=== PATIENT | male | born 1980 | race American Indian/Alaskan Native ===

== ENCOUNTER 2022-07-13 17:36 | Emergency (ER) | payer SELFPAY ==
--- NOTE | 2022-07-13 | ECG_ITS ---
Test Reason : CHEST PAIN Blood Pressure : / mmHG Vent. Rate : 061 BPM Atrial Rate : 061 BPM P-R Int : 172 ms QRS Dur : 090 ms QT Int : 406 ms P-R-T Axes : 039 023 011 degrees QTc Int : 408 ms Normal sinus rhythm Normal ECG When compared with ECG of 25-JUN-2019 13:19, No significant change was found Referred By: Generic ED Physician Electronically Signed By:CORTNEY NAPOLES
--- NOTE | ~2022-07-13 | XR_ITS ---
EXAMINATION: XR CHEST CLINICAL INFORMATION: Cough. COMPARISON: 06/25/2019 chest radiographs. TECHNIQUE: Frontal view of the chest was obtained. FINDINGS: No significant abnormality is noted involving the heart, lungs, mediastinum, bony thorax or soft tissues. XR/XR chest 1V IMPRESSION: No acute cardiopulmonary process.
[2022-07-13 17:39] VITALS: BP 133/89; PULSE 70; RESP 18; TEMP 36.7; O2SAT 98; BMI 29.0
--- NOTE | 2022-07-13 17:42 | ED_ITS ---
HPI - URI/Sore Throat General Chief Complaint: Chest Pain <FANNY Dee Last Filed: 07/13/22 17:43> Stated Complaint: Chest pain/Cough <FANNY Dee Last Filed: 07/13/22 17:43> Time Seen by Provider: 07/13/22 23:58 <FANNY Dee Last Filed: 07/13/22 17:43> Source: patient <FANNY Kauffman Last Filed: 07/14/22 00:35> Mode of arrival: ambulatory <FANNY Kauffman Last Filed: 07/14/22 00:35> Limitations: no limitations <FANNY Kauffman Last Filed: 07/14/22 00:35> History of Present Illness HPI Narrative: This is a 41-year-old male without significant medical history presenting to the emergency department with complaints of persistent cough times few weeks, patient reports the cough is intermittent, dry and very uncomfortable in nature. Patient tells me he is coughing so much that when he coughs he gets chest pain however does not have chest pain at rest or with exertion. Patient reports he was recently diagnosed with COVID-19 a few weeks ago without complications. He denies fevers, chills, nausea, vomiting, abdominal pain, headache, vision changes, lower extremity swelling, shortness of breath, headache, vision changes, weakness. No history of PE or DVT. No history of hypercoagulable disorders. Not on hormone replacement therapy. Denies long travel. <FANNY Kauffman Last Filed: 07/14/22 00:35> Related Data Home Medications: Previous Rx's Medication Instructions Recorded albuterol sulfate 90 mcg/actuation 2 inh inhalation Q4-6H PRN 07/14/22 breath activated powder inhaler shortness of breath or wheezing #1 ea azithromycin 250 mg tablet See Rx Instructions PO .COMPLEX #6 07/14/22 tabs prednisone 20 mg tablet 40 mg PO DAILY 5 days #10 tabs 07/14/22 <FANNY Dee Last Filed: 07/13/22 17:43> Allergies/Adverse Reactions: Allergies Allergy/AdvReac Type Severity Reaction Status Date / Time No Known Allergies Allergy Unverified 02/07/20 15:53 [No Known Allergies*] <FANNY Dee - Last Filed: 07/13/22 17:43> Review of Systems Review of Systems: Constitutional : No Weight loss, No Fever, No Chills, No Fatigue, No Malaise ENT/Mouth : No sore throat, No Rhinorrhea Eyes: No Eye Pain, No Swelling, No Redness Cardiovascular : No Chest Pain, No SOB, No Dyspnea on Exertion, No Orthopnea, No Edema, No Palpitations Respiratory : + Cough, No Sputum, No Wheezing Gastrointestinal : No Nausea, No Vomiting, No Diarrhea, No Constipation, No abdominal Pain, No Hematochezia, No Melena Genitourinary : No Dysuria, No Urinary Frequency, No Hematuria, Musculoskeletal : No joint pain, No Myalgias, No Joint Swelling Skin : No Skin Lesions, No rash Neuro : No Weakness, No Numbness, No Dizziness, No Headache Psych : No Anxiety/Panic, No Depression All other systems reviewed and are negative <FANNY Kauffman - Last Filed: 07/14/22 00:35> Yes all other systems are reviewed and are negative <FANNY Kauffman - Last Filed: 07/14/22 00:35> [facility] Past Medical History Attestation statement: The following information was validated with the patient. <FANNY Kauffman - Last Filed: 07/14/22 00:35> Source: old records reviewed and nursing notes reviewed <FANNY Kauffman - Last Filed: 07/14/22 00:35> Social History Social History: Social History Advance Directives: No Advance Directives Information Provided: Yes <FANNY Dee - Last Filed: 07/13/22 17:43> Physical Exam Vital Signs: Vital Signs: Last Vital Signs Temp 98.0 F 07/13/22 17:39 Pulse 62 07/14/22 00:27 Resp 16 07/14/22 00:27 BP 133/89 07/13/22 17:39 Pulse Ox 98 07/13/22 17:39 O2 Del Method 07/13/22 17:39 BMI result Body Mass Index 29.0 <FANNY Dee - Last Filed: 07/13/22 17:43> Vital Signs: Last Vital Signs Temp 98.0 F 07/13/22 17:39 Pulse 62 07/14/22 00:27 Resp 16 07/14/22 00:27 BP 133/89 07/13/22 17:39 Pulse Ox 98 07/13/22 17:39 O2 Del Method 07/13/22 17:39 BMI result Body Mass Index 29.0 vss <FANNY Kauffman - Last Filed: 07/14/22 00:35> Appearance: Alert.? Oriented X3.? No acute distress.? Head: Normocephalic, atraumatic, no step-offs or deformities Eyes: Pupils equal, round and reactive to light.? ENT: Pharynx normal.? Neck: Normal inspection.? Neck supple.? CVS: Normal heart rate and rhythm.? Pulses normal.? Respiratory: No respiratory distress.? Breath sounds normal.? Abdomen: Soft and nontender.? Skin: Skin warm and dry.? Normal skin color.? Normal skin turgor.? Extremities: No lower extremity edema.? No calf ttp, negative Kathy bilaterally. 5/5 strength to bilateral upper and lower extremities Neuro: Oriented X 3.? No motor deficit.? No sensory deficit. CN 2-12 intact <FANNY Kauffman - Last Filed: 07/14/22 00:35> Course Course Course Narrative: RME--41-year-old male with recent COVID-19 presenting to ED complaining of persistent cough and chest discomfort with cough x 1.5 weeks Lungs CTA CXR ordered <FANNY Dee - Last Filed: 07/13/22 17:43> Reevaluation(s) Reevaluation #1: EKG with normal sinus rhythm no ST elevations or inversions concerning for ischemia. Unlikely ACS. Patient PERC negative unlikely PE. Chest x-ray no signs of pneumonia. No acute cardiopulmonary process is seen. Patient will be discharged home on a Z-Guicho, prednisone and albuterol inhaler for suspected post viral bronchitis. Educated patient on diagnosis and treatment plan, answered all question, patient verbalizes understanding. At this time patient will be discharged home, advised to return with new or worsening symptoms. Educated on worrisome signs and symptoms and when to return. At this time I feel comfortable discharge home. <FANNY Kauffman - Last Filed: 07/14/22 00:35> Time: 00:05 <FANNY Kauffman - Last Filed: 07/14/22 00:35> Medications Administered Discontinued Medications Generic Name Dose Route Start Last Admin Trade Name Freq PRN Reason Stop Dose Admin Albuterol Sulfate 4 puff 07/14/22 00:08 07/14/22 00:26 Albuterol Sulfate 90 Mcg 8 Gm Inhaler INHALE 07/14/22 00:09 4 puff ONCE ONE Administration <FANNY Dee - Last Filed: 07/13/22 17:43> Medications Administered Discontinued Medications Generic Name Dose Route Start Last Admin Trade Name Freq PRN Reason Stop Dose Admin Albuterol Sulfate 4 puff 07/14/22 00:08 07/14/22 00:26 Albuterol Sulfate 90 Mcg 8 Gm Inhaler INHALE 07/14/22 00:09 4 puff ONCE ONE Administration <FANNY Kauffman - Last Filed: 07/14/22 00:35> Medical Decision Making Medical Decision Making MDM Narrative: 0003 41-year-old male presents with persistent dry cough status post COVID-19 infection, reports he is coughing so much he is having chest discomfort with cough. Physical examination benign. Likely bronchitis verses post COVID complication. Unlikely PE, patient PERC negative. Unlikely ACS, chest pain only related to cough, no chest pain at rest. History and physical exam not consistent with heart failure. Unlikely pneumonia or pneumothorax. Plan at this time EKG and chest x-ray. <FANNY Kauffman - Last Filed: 07/14/22 00:35> Differential Diagnosis Differential Diagnoses: The differential diagnosis associated with the presentation includes <FANNY Kauffman - Last Filed: 07/14/22 00:35> Likely bronchitis verses post COVID complication. Unlikely PE, patient PERC negative. Unlikely ACS, chest pain only related to cough, no chest pain at rest. History and physical exam not consistent with heart failure. Unlikely pneumonia or pneumothorax. <FANNY Kauffman - Last Filed: 07/14/22 00:35> Admission/Observation Consideration of admission/observation: Escalation of care including admission/observation considered <FANNY Kauffman - Last Filed: 07/14/22 00:35> Not indicated <FANNY Kauffman - Last Filed: 07/14/22 00:35> Independent Interpretation I performed an independent interpretation of an: EKG (Ventricular rate of 61, MD normal, QRS normal, QT/QTC normal. EKG with normal sinus rhythm no ST elevations or inversions concerning for ischemia.) and Plain X-Ray (XR/XR chest 1V IMPRESSION: No acute cardiopulmonary process. ) <FANNY Kauffman - Last Filed: 07/14/22 00:35> Radiology Impression Discussion of test interpretation with radiology: I have reviewed the radiologist's reading. <FANNY Kauffman - Last Filed: 07/14/22 00:35> Core Measures AMI core measures followed: Yes <FANNY Kauffman - Last Filed: 07/14/22 00:35> Measure exclusions: not indicated <FANNY Kauffman - Last Filed: 07/14/22 00:35> Critical Care Time Critical Care Time Critical Care Time: No <FANNY Kauffman - Last Filed: 07/14/22 00:35> Discharge Plan Discharge Clinical Impression: Bronchitis <FANNY Dee - Last Filed: 07/13/22 17:43> Patient Disposition: Home, Self-Care <FANNY Dee - Last Filed: 07/13/22 17:43> Instructions: Acute Bronchitis (ED) <FANNY Dee - Last Filed: 07/13/22 17:43> Additional Instructions: Take your medications as prescribed. If you were prescribed antibiotics today, it is important that you take your medication to their entirety, do not skip any doses, do not finish them early. Follow-up with your primary care provider this week. Return to the emergency department with new or worsening symptoms. Such as fevers, chills, chest pain, shortness of breath, nausea, vomiting, dizziness, headache, vision changes, lethargy In case of emergency call 911 <FANNY Dee - Last Filed: 07/13/22 17:43> Prescriptions: New albuterol sulfate 90 mcg/actuation aerosol powdr breath activated 2 inh inhalation Q4-6H PRN (Reason: shortness of breath or wheezing) Qty: 1 0RF azithromycin 250 mg tablet See Rx Instructions .ROUTE .COMPLEX Qty: 6 0RF Rx Instructions: For 250 mg dose pack: take 500 mg today (day 1), then 250 mg for 4 days (days 2-5) prednisone 20 mg tablet 40 mg PO DAILY 5 Days Qty: 10 0RF <FANNY Dee - Last Filed: 07/13/22 17:43> Referrals: Physician,Unknown J [Primary Care Provider] - 2 days <FANNY Dee - Last Filed: 07/13/22 17:43> Stand Alone Forms: Work/School Release <FANNY Dee - Last Filed: 07/13/22 17:43>
[2022-07-14] MEDS: Albuterol Sulfate 90 MCG 8 GM INHALER 4 PUFF INHALE (00:26)
[2022-07-14 00:27] VITALS: PULSE 62; RESP 16; O2SAT 97
[2022-07-14 01:25] VITALS: BP 125/87; PULSE 61; RESP 12; O2SAT 96
[2022-07-14 01:57] LABS: COVID-19 Test Positive (Negative); IDNOW Serial# 16C4AD1C
[2022-07-14 01:59] LABS: IDNOW Serial# BCCEAD1C; Influenza A Negative (Negative); Influenza B2 Negative (Negative)
== END 2022-07-14 01:27 | disposition home or self-care (01) ==
PROVIDERS: Physician Assistant; Emergency Provider Internal Medicine
DX: J40 Bronchitis, not specified as acute or chronic (principal); R07.89 Other chest pain; R05.9 Cough, unspecified; R06.02 Shortness of breath; Z20.822 Contact with and (suspected) exposure to COVID-19; Z20.828 Contact with and (suspected) exposure to other viral communicable diseases; Z79.899 Other long term (current) drug therapy
CPT/HCPCS: 71045; 87502; 87635; 93005; 94640; 94664; 99284

== ENCOUNTER 2023-01-24 14:01 | Emergency (ER) | payer SELFPAY ==
--- NOTE | ~2023-01-24 | CT_ITS ---
EXAMINATION: CT HEAD WITHOUT CONTRAST (STROKE PROTOCOL) CLINICAL INFORMATION: Stroke protocol. Sudden onset blurry vision and dizziness. COMPARISON: None available. TECHNIQUE: Contiguous axial imaging was performed from the skull base to vertex without intravenous administration of contrast. This CT examination was performed using dose optimization techniques as appropriate, variously including the following: *Automated exposure control *Adjustment of mA and/or kV according to patient size (this includes techniques or standardized protocols for targeted exams where dose is matched to indication/reason for exam; i.e. extremities or head) *Use of iterative reconstruction technique DLP: 669 mGy-cm FINDINGS: There is no evidence of an extra-axial collection. There is no evidence of intra or extra-axial hemorrhage. The ventricles and extra-axial CSF spaces are appropriate. Marr-white matter differentiation is normal. No mass, mass effect or infarct. There may be a left nasal bone fracture, uncertain age. Review of bone windows is otherwise normal. Visualized paranasal sinuses, mastoid air cells and middle ears are clear. CT/CT head for stroke IMPRESSION: No acute intracranial pathology. This critical result was discussed with Carolina Garza at 1510 hours on 01/24/2023. It was ascertained that the content and urgency of the report was understood at the time of direct communication.
--- NOTE | 2023-01-24 14:03 | ECG_ITS ---
Test Reason : cp Blood Pressure : / mmHG Vent. Rate : 067 BPM Atrial Rate : 067 BPM P-R Int : 160 ms QRS Dur : 086 ms QT Int : 376 ms P-R-T Axes : 004 013 004 degrees QTc Int : 397 ms Normal sinus rhythm Normal ECG When compared with ECG of 13-JUL-2022 23:47, No significant change was found Referred By: Dixie Davies Electronically Signed By:CASANDRA BERNABE
[2023-01-24 14:18] VITALS: BP 146/101; PULSE 73; RESP 18; TEMP 36.3; O2SAT 95; BMI 29.8
--- NOTE | 2023-01-24 14:19 | ED_ITS ---
HPI - General Adult General Chief complaint: Neuro Symptoms/Deficit Stated complaint: high bp chest pain Time Seen by Provider: 01/24/23 14:28 Related Data Previous Rx's Medication Instructions Recorded albuterol sulfate 90 mcg/actuation 2 inh inhalation Q4-6H PRN 07/14/22 breath activated powder inhaler shortness of breath or wheezing #1 ea azithromycin 250 mg tablet See Rx Instructions PO .COMPLEX #6 07/14/22 tabs prednisone 20 mg tablet 40 mg (2 x 20 mg) PO DAILY 5 days 07/14/22 #10 tabs Allergies Allergy/AdvReac Type Severity Reaction Status Date / Time No Known Allergies Allergy Unverified 02/07/20 15:53 [No Known Allergies*] PMFSH Social History Social History Alcohol intake: former Smoked in Last 30 Days: No Use of substances other than those prescribed or required for medical reasons: No Advance Directives: No Advance Directives Information Provided: No Physical Exam ED Vital Signs: Vital Signs - 24 hr 01/24/23 14:18 01/24/23 14:40 01/24/23 14:56 Temperature 97.4 F Pulse Rate 73 65 Respiratory Rate 18 18 20 Blood Pressure 146/101 H 121/84 Pulse Oximetry 95 98 Oxygen Delivery Method Room Air Room Air BMI result Body Mass Index 29.8 NIH Stroke Scale Internal: Initial- Upon Arrival Time: 14:19 Level of Consciousness: Alert Level of Consciousness Questions: Answers both questions correctly Level of Consciousness Commands: Performs both tasks correctly Best Gaze: Normal Visual: No visual loss Facial Palsy: Normal Motor Arm (Right): No drift Motor Arm (Left): No drift Motor Leg (Right): No drift Motor Leg (Left): No drift Limb Ataxia: Absent Sensory: Normal Best Language: No aphasia Dysarthia: Normal Extinction and Inattention: No abnormality Score: 0 Course Course Course Narrative: This is a rapid medical exam: Additional HPI, ROS, PE not included below will be deferred to primary provider. Patient is a 42 year old male presenting to the emergency department with complaint of sudden onset blurred vision and dizziness which began at 11:48 this morning. reports blood pressures were elevated. Also complaining of chest pain which began shortly after. Patient activated as stroke alert. Medications Administered Discontinued Medications Generic Name Dose Route Start Last Admin Trade Name Freq PRN Reason Stop Dose Admin Diphenhydramine HCl 25 mg 01/24/23 14:39 01/24/23 14:54 Diphenhydramine Hcl 50 Mg/Ml Vial IVPUSH 01/24/23 14:40 25 mg ONCE ONE Administration Sodium Chloride 1,000 mls @ 999 mls/hr 01/24/23 14:40 01/24/23 16:35 Ns IVCONT 01/24/23 15:40 Infused .Q1H1M ONE Infusion Metoclopramide HCl 10 mg 01/24/23 14:39 01/24/23 15:03 Metoclopramide Hcl 10 Mg/2 Ml Vial IVPUSH 01/24/23 14:40 10 mg ONCE ONE Administration Morphine Sulfate 4 mg 01/24/23 14:39 01/24/23 14:56 Morphine Sulfate 4 Mg/Ml Cartridge IVPUSH 01/24/23 14:40 4 mg ONCE ONE Administration Protocol Medical Decision Making Lab Data 01/24/23 14:38 01/24/23 14:38 Labs: Lab Results 01/24/23 01/24/23 Range/Units 14:33 14:38 WBC 6.4 (4.8-10.8) X10*3/uL RBC 4.77 (4.60-5.80) X10*6/uL Hgb 15.3 (14.0-18.0) g/dl Hct 42.5 (42.0-52.0) % MCV 89.1 (80.0-98.0) fL MCH 32.1 (27.0-33.0) pg MCHC 36.0 (31.0-36.0) g/dl RDW 11.4 (11.0-16.0) % Plt Count 296 (160-400) X10*3/uL MPV 9.1 L (9.4-12.4) fL Immature Gran % (Auto) 0.2 (0.0-0.4) % Neut % (Auto) 55.7 (45-73) % Lymph % (Auto) 30.5 (20-40) % [place] % (Auto) 11.6 H (2-11) % Eos % (Auto) 1.4 (0-4) % Baso % (Auto) 0.6 (0-2) % Lymph # (Auto) 2.0 (1.2-4.9) X10*3/uL [place] # (Auto) 0.7 (0.1-1.2) X10*3/uL Eos # (Auto) 0.1 (0.0-0.4) X10*3/uL Baso # (Auto) 0.0 (0.0-0.2) X10*3/uL Abs Immat Gran (auto) 0.01 (0.00-0.03) X10*3/uL Absolute Neuts (auto) 3.6 (2.0-8.3) x10*3/uL Absolute Nucleated RBC 0.000 (0.0-0.012) X10*3/uL Nucleated RBC % (auto) 0.0 (0.0-0.2) /100WBC PT 11.7 (11.1-13.3) SEC Whole Blood PT 12.9 (11.1-13.5) sec INR 1.0 (0.9-1.1) Whole Blood INR 1.1 (0.9-1.1) APTT 30.9 (26.0-36.4) SEC Sodium 138 (135-145) mmol/L Potassium 4.0 (3.3-5.1) mmol/L Chloride 107 (96-108) mmol/L Carbon Dioxide 23 (22-29) mmol/L Anion Gap 12 (12-20) BUN 15 (9-16) mg/dL Creatinine 0.93 (0.5-1.4) mg/dL Estim Creat Clear Calc 130.1 Estimated GFR > 60 POC Glucose 87 (60-115) mg/dL Random Glucose 99 (60-115) mg/dL Calcium 9.7 (8.4-10.2) mg/dL Total Creatine Kinase 221 H (38-174) U/L Troponin I High Sens < 2.7 (<3.5-35.0) ng/L Discharge Plan Discharge Clinical Impression: Headache Patient Disposition: Home, Self-Care Instructions: Acute Headache (ED) Additional Instructions: Please follow-up with your primary care physician tomorrow. If you have any worsening or new symptoms, please return to the emergency room or call 911 Prescriptions: No Action albuterol sulfate 90 mcg/actuation aerosol powdr breath activated 2 inh inhalation Q4-6H PRN (Reason: shortness of breath or wheezing) Qty: 1 0RF azithromycin 250 mg tablet See Rx Instructions .ROUTE .COMPLEX Qty: 6 0RF Rx Instructions: For 250 mg dose pack: take 500 mg today (day 1), then 250 mg for 4 days (days 2-5) prednisone 20 mg tablet 40 mg PO DAILY 5 Days Qty: 10 0RF Interventions: ED Discharge Assessment Last Done: 01/24/23 16:35 Discharge Date/Time: 01/24/23 16:36
--- NOTE | 2023-01-24 14:35 | ED_ITS ---
HPI - Neuro Symptoms/Deficit General Chief Complaint: Neuro Symptoms/Deficit Stated Complaint: high bp chest pain Time Seen by Provider: 01/24/23 14:28 Source: patient Mode of arrival: ambulatory Limitations: no limitations History of Present Illness HPI Narrative: Patient comes to the emergency room complaining of headache and blurred vision. Patient states that he was driving when he had a sudden onset of headache in the bit of blurred vision. Patient states that when he got home he check his blood pressure it was approximately 140 systolic. Patient's family brought him to the emergency room. Patient states that he has history of high blood pressure in the past but is not taking any blood pressure medications Related Data Previous Rx's Medication Instructions Recorded albuterol sulfate 90 mcg/actuation 2 inh inhalation Q4-6H PRN 07/14/22 breath activated powder inhaler shortness of breath or wheezing #1 ea azithromycin 250 mg tablet See Rx Instructions PO .COMPLEX #6 07/14/22 tabs prednisone 20 mg tablet 40 mg PO DAILY 5 days #10 tabs 07/14/22 Allergies Allergy/AdvReac Type Severity Reaction Status Date / Time No Known Allergies Allergy Unverified 02/07/20 15:53 [No Known Allergies*] Review of Systems Review of Systems: Constitutional : No Weight loss, No Fever, No Chills, No Night Sweats, No Fatigue, No Malaise ENT/Mouth : No Hearing loss, No Ear Pain, No Nasal Congestion, No Sinus Pain, No Hoarseness, No sore throat, No Rhinorrhea, No Swallowing Difficulty Eyes: No Eye Pain, No Swelling, No Redness, No Foreign Body, No Discharge, No Vision Changes Cardiovascular : No Chest Pain, No SOB, No Dyspnea on Exertion, No Orthopnea, No Edema, No Palpitations Respiratory : No Cough, No Sputum, No Wheezing, No Smoke Exposure, No Dyspnea Gastrointestinal : No Nausea, No Vomiting, No Diarrhea, No Constipation, No abdominal Pain, No Hematochezia, No Melena Genitourinary : no irregular bleeding, No Dysuria, No Urinary Frequency, No Hematuria, No Urinary Incontinence, No Urgency, No Flank Pain, No Urinary Flow Changes, No Hesitancy Musculoskeletal : No joint pain, No Myalgias, No Joint Swelling Skin : No Skin Lesions, No rash Neuro : No Weakness, No Numbness, No Paresthesias, No Loss of Consciousness, No Dizziness, complaining of a headache with mildly blurred vision Psych : No Anxiety/Panic, No Depression, No SI/HI/AH/VH, No Social Issues, Heme/Lymph: No Bruising, No Bleeding,No Lymphadenopathy Endocrine : No Polyuria, No Polydipsia, No Temperature Intolerance [facility] Social History Social History Alcohol intake: former Smoked in Last 30 Days: No Use of substances other than those prescribed or required for medical reasons: No Advance Directives: No Advance Directives Information Provided: No Physical Exam Vital Signs: Vital Signs: Last Vital Signs Temp 97.4 F 01/24/23 14:18 Pulse 65 01/24/23 14:40 Resp 20 01/24/23 14:56 BP 121/84 01/24/23 14:40 Pulse Ox 98 01/24/23 14:40 O2 Del Method Room Air 01/24/23 14:40 BMI result Body Mass Index 29.8 Const: Other: Appearance: Alert. Oriented X3. No acute distress. Eyes: Pupils equal, round and reactive to light. ENT: Pharynx normal. Neck: Normal inspection. Neck supple. No lymph nodes noted. No crepitus CVS: Normal heart rate and rhythm. Pulses normal. Normal S1 and S2 Respiratory: No respiratory distress. Breath sounds normal. No Wheezing. No rales Abdomen: Soft and nontender. No rigidity. No distention. Skin: Skin warm and dry. Normal skin color. Normal skin turgor. Extremities: No lower extremity edema. No Lacerations. No Rash Neuro: Oriented X 3. No motor deficit. No sensory deficit. Moving all ex tremities. No slurred speech. CN 2 through 12 grossly intact Psych: calm, cooperative, normal affect Course Course Course Narrative: -patient arrived walking with steady gait, patient's NIH score 0, patient not a candidate for tPA -blood pressure 146/101 -all of patient's labs and imaging pending -stroke protocol ordered from triage. After speaking to the patient, patient seems to be having a complex migraine and rather than stroke-like symptoms. Medications Administered Discontinued Medications Generic Name Dose Route Start Last Admin Trade Name Freq PRN Reason Stop Dose Admin Diphenhydramine HCl 25 mg 01/24/23 14:39 01/24/23 14:54 Diphenhydramine Hcl 50 Mg/Ml Vial IVPUSH 01/24/23 14:40 25 mg ONCE ONE Administration Sodium Chloride 1,000 mls @ 999 mls/hr 01/24/23 14:40 01/24/23 15:04 Ns IVCONT 01/24/23 15:40 999 mls/hr .Q1H1M ONE Administration Metoclopramide HCl 10 mg 01/24/23 14:39 01/24/23 15:03 Metoclopramide Hcl 10 Mg/2 Ml Vial IVPUSH 01/24/23 14:40 10 mg ONCE ONE Administration Morphine Sulfate 4 mg 01/24/23 14:39 01/24/23 14:56 Morphine Sulfate 4 Mg/Ml Cartridge IVPUSH 01/24/23 14:40 4 mg ONCE ONE Administration Protocol Medical Decision Making Medical Decision Making MDM Narrative: -patient's vision is normal, acuity test 20/40 on the left, on the right 20/25 -head CT negative -patient received pain medication for the headache, his symptoms resolved, no headache -blood pressure 121/84 without any treatment other than morphine for the headache -patient has steady gait, ambulatory, asymptomatic. -NIH score 0, I do not believe the patient had either a TIA or a stroke. This was likely a migraine Differential Diagnosis Differential Diagnoses: The differential diagnosis associated with the presentation includes (Intracranial bleed, Tension headache, migraine headache, cluster headache, TIA, CVA) Admission/Observation Consideration of admission/observation: Escalation of care including admission/observation considered (Patient came in complaining with headache, blurry vision, admission was considered) Lab Data [facility] Lab Attestation statement: I reviewed the patient's lab results. 01/24/23 14:38 01/24/23 14:38 Labs: Lab Results 01/24/23 01/24/23 01/24/23 Range/Units 14:33 14:33 14:38 WBC 6.4 (4.8-10.8) X10*3/uL RBC 4.77 (4.60-5.80) X10*6/uL Hgb 15.3 (14.0-18.0) g/dl Hct 42.5 (42.0-52.0) % MCV 89.1 (80.0-98.0) fL MCH 32.1 (27.0-33.0) pg MCHC 36.0 (31.0-36.0) g/dl RDW 11.4 (11.0-16.0) % Plt Count 296 (160-400) X10*3/uL MPV 9.1 L (9.4-12.4) fL Immature Gran % (Auto) 0.2 (0.0-0.4) % Neut % (Auto) 55.7 (45-73) % Lymph % (Auto) 30.5 (20-40) % Cuming % (Auto) 11.6 H (2-11) % Eos % (Auto) 1.4 (0-4) % Baso % (Auto) 0.6 (0-2) % Lymph # (Auto) 2.0 (1.2-4.9) X10*3/uL Cuming # (Auto) 0.7 (0.1-1.2) X10*3/uL Eos # (Auto) 0.1 (0.0-0.4) X10*3/uL Baso # (Auto) 0.0 (0.0-0.2) X10*3/uL Abs Immat Gran (auto) 0.01 (0.00-0.03) X10*3/uL Absolute Neuts (auto) 3.6 (2.0-8.3) x10*3/uL Absolute Nucleated RBC 0.000 (0.0-0.012) X10*3/uL Nucleated RBC % (auto) 0.0 (0.0-0.2) /100WBC PT (11.1-13.3) SEC Whole Blood PT 12.9 (11.1-13.5) sec INR (0.9-1.1) Whole Blood INR 1.1 (0.9-1.1) APTT (26.0-36.4) SEC Sodium (135-145) mmol/L Potassium (3.3-5.1) mmol/L Chloride (96-108) mmol/L Carbon Dioxide (22-29) mmol/L Anion Gap (12-20) BUN (9-16) mg/dL Creatinine (0.5-1.4) mg/dL Estim Creat Clear Calc Estimated GFR POC Glucose 87 (60-115) mg/dL Random Glucose (60-115) mg/dL Calcium (8.4-10.2) mg/dL Total Creatine Kinase (38-174) U/L Troponin I High Sens (<3.5-35.0) ng/L 01/24/23 01/24/23 01/24/23 Range/Units 14:38 14:38 14:38 WBC (4.8-10.8) X10*3/uL RBC (4.60-5.80) X10*6/uL Hgb (14.0-18.0) g/dl Hct (42.0-52.0) % MCV (80.0-98.0) fL MCH (27.0-33.0) pg MCHC (31.0-36.0) g/dl RDW (11.0-16.0) % Plt Count (160-400) X10*3/uL MPV (9.4-12.4) fL Immature Gran % (Auto) (0.0-0.4) % Neut % (Auto) (45-73) % Lymph % (Auto) (20-40) % Cuming % (Auto) (2-11) % Eos % (Auto) (0-4) % Baso % (Auto) (0-2) % Lymph # (Auto) (1.2-4.9) X10*3/uL Cuming # (Auto) (0.1-1.2) X10*3/uL Eos # (Auto) (0.0-0.4) X10*3/uL Baso # (Auto) (0.0-0.2) X10*3/uL Abs Immat Gran (auto) (0.00-0.03) X10*3/uL Absolute Neuts (auto) (2.0-8.3) x10*3/uL Absolute Nucleated RBC (0.0-0.012) X10*3/uL Nucleated RBC % (auto) (0.0-0.2) /100WBC PT 11.7 (11.1-13.3) SEC Whole Blood PT (11.1-13.5) sec INR 1.0 (0.9-1.1) Whole Blood INR (0.9-1.1) APTT 30.9 (26.0-36.4) SEC Sodium 138 (135-145) mmol/L Potassium 4.0 (3.3-5.1) mmol/L Chloride 107 (96-108) mmol/L Carbon Dioxide 23 (22-29) mmol/L Anion Gap 12 (12-20) BUN 15 (9-16) mg/dL Creatinine 0.93 (0.5-1.4) mg/dL Estim Creat Clear Calc 130.1 Estimated GFR > 60 POC Glucose (60-115) mg/dL Random Glucose 99 (60-115) mg/dL Calcium 9.7 (8.4-10.2) mg/dL Total Creatine Kinase 221 H (38-174) U/L Troponin I High Sens < 2.7 (<3.5-35.0) ng/L Independent Interpretation I performed an independent interpretation of an: CT Scan Radiology Impression Discussion of test interpretation with radiology: I have reviewed the radiologist's reading. Radiologist Impression: INDINGS: There is no evidence of an extra-axial collection. There is no evidence of intra or extra-axial hemorrhage. The ventricles and extra-axial CSF spaces are appropriate. Marr-white matter differentiation is normal. No mass, mass effect or infarct. There may be a left nasal bone fracture, uncertain age. Review of bone windows is otherwise normal. Visualized paranasal sinuses, mastoid air cells and middle ears are clear. CT/CT head for stroke IMPRESSION: No acute intracranial pathology. Independent Historian Clinical information obtained from an independent historian. History obtained from or confirmed by: Spouse Tests considered The following testing was considered but not selected: CTA was considered. However, patient has no neurological deficits. Even before coming in patient had no deficits that would indicate a TIA or a stroke Prescription Management I considered prescription management with: Other Starting blood pressure medication was consider. However, blood pressure was 146 systolic on arrival, without any intervention, patient's blood pressure 121/84. Patient instructed to follow-up with his primary care physician. NIH Stroke Scale Internal: Initial- Upon Arrival Level of Consciousness: Alert Level of Consciousness Questions: Answers both questions correctly Level of Consciousness Commands: Performs both tasks correctly Best Gaze: Normal Visual: No visual loss Facial Palsy: Normal Motor Arm (Right): No drift Motor Arm (Left): No drift Motor Leg (Right): No drift Motor Leg (Left): No drift Limb Ataxia: Absent Sensory: Normal Best Language: No aphasia Dysarthia: Normal Extinction and Inattention: No abnormality Score: 0 Critical Care Time Critical Care Time Critical Care Time: Yes Total Critical Care Time: 60 Attestation: I have personally provided critical care time. Time includes review of lab data, radiology results, discussion with consultants, and monitoring for potential decompensation. Intervention performed as documented. Discharge Plan Discharge Clinical Impression: Headache Patient Disposition: Home, Self-Care Instructions: Acute Headache (ED) Additional Instructions: Please follow-up with your primary care physician tomorrow. If you have any worsening or new symptoms, please return to the emergency room or call 911 Prescriptions: No Action albuterol sulfate 90 mcg/actuation aerosol powdr breath activated 2 inh inhalation Q4-6H PRN (Reason: shortness of breath or wheezing) Qty: 1 0RF azithromycin 250 mg tablet See Rx Instructions .ROUTE .COMPLEX Qty: 6 0RF Rx Instructions: For 250 mg dose pack: take 500 mg today (day 1), then 250 mg for 4 days (days 2-5) prednisone 20 mg tablet 40 mg PO DAILY 5 Days Qty: 10 0RF
[2023-01-24 14:38] LABS: Glucose, Whole Blood 87 mg/dL (60-115); Prothrombin Time Whole Bld POC 12.9 sec (11.1-13.5); ~PT, ~INR - Anti Coag Clinic 1.1 (0.9-1.1)
[2023-01-24 14:40] VITALS: BP 121/84; PULSE 65; RESP 18; O2SAT 98
--- NOTE | 2023-01-24 14:43 | PC.NURSE ---
Patient reports had a headache this morning and took motrin around 9:30am and then went to [employer]. Patient states while at [employer] and on drive home he was seeing blury and headache worsened. At home patient checked his BP and it was 146/99 and then a few hours later 144/92. PERRLA, hand grasps strong and equal.
[2023-01-24 14:46] LABS: MANUAL DIFF FLAG NO
[2023-01-24 14:47] LABS: Basophils Percent Auto 0.6 % (0-2); Eosinophils Absolute Auto 0.1 X10*3/uL (0.0-0.4); Eosinophils Percent Auto 1.4 % (0-4); Hematocrit 42.5 % (42.0-52.0); Hemoglobin 15.3 g/dl (14.0-18.0); Imm Gran Abs Auto 0.01 X10*3/uL (0.00-0.03); Imm Gran Pct Auto 0.2 % (0.0-0.4); Lymphocytes Percent Auto 30.5 % (20-40); Mean Corpuscular Hemoglobin 32.1 pg (27.0-33.0); Mean Corpuscular Volume 89.1 fL (80.0-98.0); Mean Platelet Volume 9.1 fL (9.4-12.4); Monocytes Absolute Auto 0.7 X10*3/uL (0.1-1.2); Monocytes Percent Auto 11.6 % (2-11); Neutrophils Absolute Auto 3.6 x10*3/uL (2.0-8.3); Neutrophils Percent Auto 55.7 % (45-73); Platelet Count 296 X10*3/uL (160-400); Red Blood Count 4.77 X10*6/uL (4.60-5.80); Red Cell Distribution Width 11.4 % (11.0-16.0); White Blood Count 6.4 X10*3/uL (4.8-10.8)
[2023-01-24 14:54] LABS: Prothrombin Time 11.7 SEC (11.1-13.3)
[2023-01-24] MEDS: diphenhydrAMINE HCL 50 MG/ML VIAL 25 MG IVPUSH (14:54)
[2023-01-24 14:56] VITALS: RESP 20
[2023-01-24 14:56] LABS: Partial Thromboplastin Time 30.9 SEC (26.0-36.4)
[2023-01-24] MEDS: Morphine Sulfate 4 MG/ML CARTRIDGE IVPUSH (14:56)
[2023-01-24 14:59] LABS: Stroke Lab Use COMPLETE
[2023-01-24] MEDS: Metoclopramide HCl 10 MG/2 ML VIAL IVPUSH (15:03)
[2023-01-24] MEDS: 0.9 % Sodium Chloride 1,000 ML 999 ML IVCONT (15:04)
[2023-01-24 15:09] LABS: Anion Gap 12 (12-20); Blood Urea Nitrogen 15 mg/dL (9-16); Calcium 9.7 mg/dL (8.4-10.2); Carbon Dioxide 23 mmol/L (22-29); Chloride 107 mmol/L (96-108); Creatinine Clr Calc Pharmacy 130.1; Estimated Glomerular Filt Rate > 60; Glucose Random 99 mg/dL (60-115); Sodium 138 mmol/L (135-145)
[2023-01-24 15:59] LABS: Troponin-I High Sensitivity < 2.7 ng/L (<3.5-35.0)
== END 2023-01-24 16:36 | disposition home or self-care (01) ==
PROVIDERS: Registered Nurse Emergency; Emergency Provider Emergency Medicine
DX: R51.9 Headache, unspecified (principal); R07.89 Other chest pain; I10 Essential (primary) hypertension; Z79.899 Other long term (current) drug therapy
CPT/HCPCS: 36415; 70450; 80048; 82550; 82947; 84484; 85025; 85610; 85730; 93005; 96361; 96374; 96375; 99284; 99285; J1200; J2270; J2765